=== PATIENT | male | born 1970 | race Hispanic/Latino ===

== ENCOUNTER → 2025-02-01 | Outpatient (CLI) | payer OTHER, SELFPAY ==
--- NOTE | 2025-02-01 16:35 | RAD_ITS ---
PROCEDURE: HAND MIN 3 VIEWS 02/01/2025 REASON FOR EXAM: 55-year-old male, HAND LACERATION TECHNIQUE: 3 views of the right hand COMPARISON: None. FINDINGS: Bones: No obvious acute fracture. No aggressive osseous lesions. Joints: Normal alignment. Mild degenerative changes. Soft tissues: No radiopaque foreign body or subcutaneous air. Other: Radiopaque bandage overlying the hand partially obscures visualization. RAD/Hand Min 3 Views IMPRESSION: NEGATIVE HAND SERIES Reading Location: [id number]
== END | disposition home or self-care (01) ==
PROVIDERS: Referring Provider Physician Assistant; Visit Provider Physician Assistant
DX: S66.124A Laceration of flexor muscle, fascia and tendon of right ring finger at wrist and hand level, initial encounter (principal); S61.411A Laceration without foreign body of right hand, initial encounter
CPT/HCPCS: 73130